=== PATIENT | female | born 1965 | race Caucasian/White ===

== ENCOUNTER 2017-04-10 00:12 | Emergency (ER) | payer OTHER ==
[2017-04-10 00:20] VITALS: BMI 22.1
[2017-04-10 00:22] VITALS: RESP 18
[2017-04-10] MEDS ORDERED: Sodium Chloride 0.9% 1,000 ML IV STA (02:08)
--- NOTE | 2017-04-10 02:10 | ED PDOC ---
HPI: Abdomen Time Seen by Provider: 04/10/17 01:00 Chief Complaint (Nursing): Abdominal Pain Chief Complaint (Provider): abdominal pain History Per: Patient History/Exam Limitations: no limitations Onset/Duration Of Symptoms: Hrs Current Symptoms Are (Timing): Still Present Location Of Pain/Discomfort: Diffuse Additional History Per: Patient Additional Complaint(s): 51 y/o female history of multiple abdominal surgeries presents with diffuse abdominal pain x 5 hours. Patient states she feels like something "popped" and fluid is moving around in her stomach. Patient notes radiation of pain up to her chest. Patient states similar to previous intestinal perforation. Denies fever, nausea/vomiting, shortness of breath, palpitations, changes in bowel movements. Patient recently moved here from [place], has not yet established healthcare providers. Past Medical History Reviewed: Historical Data, Nursing Documentation, Vital Signs Vital Signs: Last Vital Signs Temp 97.7 F 04/10/17 00:20 Pulse 118 H 04/10/17 00:20 Resp 18 04/10/17 00:20 BP 148/100 H 04/10/17 00:20 Pulse Ox 98 04/10/17 05:01 - Medical History PMH: HTN, Hypothyroidism Other PMH: endometriosis, SBO, intestinal perforation - Surgical History Other surgeries: laparscopies, jejunostomy, hysterectomy - Family History Family History: States: No Known Family Hx - Home Medications Home Medications: Ambulatory Orders Medication Instructions Recorded Docusate Sodium [Colace] 100 mg PO BID #20 capsule 04/10/17 Polyethylene Glycol 3350 [Miralax] 17 gm PO DAILY PRN #5 powd.pack 04/10/17 - Allergies Allergies/Adverse Reactions: Allergies Allergy/AdvReac Type Severity Reaction Status Date / Time butorphanol [From Stadol] Allergy ANAPHYLAXIS Verified 04/10/17 00:47 ketorolac [From Toradol] Allergy ANAPHYLAXIS Verified 04/10/17 00:47 levothyroxine sodium Allergy ANAPHYLAXIS Verified 04/10/17 00:47 [From Synthroid] metoclopramide [From Reglan] Allergy ANAPHYLAXIS Verified 04/10/17 00:47 morphine Allergy ANAPHYLAXIS Verified 04/10/17 00:47 nalbuphine [From Nubain] Allergy ANAPHYLAXIS Verified 04/10/17 00:47 ondansetron Allergy ANAPHYLAXIS Verified 04/10/17 00:47 [From Zofran (as hydrochloride)] prochlorperazine Allergy ANAPHYLAXIS Verified 04/10/17 00:47 [From Compazine] Review of Systems ROS Statement: Except As Marked, All Systems Reviewed And Found Negative Gastrointestinal: Positive for: Abdominal Pain Physical Exam - Reviewed Nursing Documentation Reviewed: Yes Vital Signs Reviewed: Yes - Physical Exam Appears: Positive for: Well, Non-toxic, No Acute Distress Head Exam: Positive for: ATRAUMATIC, NORMAL INSPECTION, NORMOCEPHALIC Skin: Positive for: Normal Color Eye Exam: Positive for: Normal appearance ENT: Positive for: Normal ENT Inspection Cardiovascular/Chest: Positive for: Regular Rate, Rhythm Respiratory: Positive for: Normal Breath Sounds Gastrointestinal/Abdominal: Positive for: Bowel Sounds, Soft, Tenderness ( diffuse), Other (midline surgical scars). Negative for: Distended, Guarding Back: Positive for: Normal Inspection Extremity: Positive for: Normal ROM Neurologic/Psych: Positive for: Alert, Oriented - Laboratory Results Result Diagrams: 04/10/17 02:20 04/10/17 02:20 Urine POC: Negative Urine dip results: Negative for: Leukocyte Esterase, Blood, Nitrate, Ketones, Glucose - ECG ECG: Positive for: Viewed By Me (reviewed by ED attending) ECG Rhythm: Positive for: Sinus Rhythm O2 Sat by Pulse Oximetry: 98 Pulse Ox Interpretation: Normal - Radiology X-Ray: Viewed By Me X-Ray Interpretation: No Acute Disease - Progress ED Course And Treament: labs, ekg, CT abd/pelvis, IV dilaudid EXAM: CT Abdomen and Pelvis With Intravenous Contrast CLINICAL HISTORY: 51 years old, female; Pain; Abdominal pain; Generalized; Prior surgery; Surgery type: Hysterectomy jejunostomy laparossopies; Additional info: Diffuse abd pain TECHNIQUE: Axial computed tomography images of the abdomen and pelvis with intravenous contrast. All CT scans at this facility use one or more dose reduction techniques, viz.: automated exposure control; ma/kV adjustment per patient size (including targeted exams where dose is matched to indication; i.e. head); or iterative reconstruction technique. Coronal and sagittal reformatted images were created and reviewed. CONTRAST: 90 mL of [id number] administered intravenously. COMPARISON: No relevant prior studies available. FINDINGS: Lower thorax: Bilateral breast implants. ABDOMEN: Liver: Hepatic cysts. Gallbladder and bile ducts: Intrahepatic and extrahepatic bile duct prominence which may be related to cholecystectomy. No calcified common bile duct stone is identified. Pancreas: Unremarkable. No mass. No ductal dilation. Spleen: Peripherally calcified cyst in the spleen. Adrenals: Unremarkable. No mass. Kidneys and ureters: Unremarkable. No solid mass. No hydronephrosis. Stomach and bowel: Moderate fecal retention in the colon consistent with constipation. Fluid distention of a few small bowel loops in the upper abdomen. A mechanical obstruction is not seen. No mucosal thickening. Appendix: The appendix is not clearly seen. PELVIS: Bladder: Unremarkable. No mass. Reproductive: Unremarkable as visualized. ABDOMEN and PELVIS: Intraperitoneal space: Unremarkable. No free air. No significant fluid collection. Bones/joints: Degenerative changes lumbar spine. Grade 1 anterolisthesis of L4 on L5 appears to be on a degenerative basis. Grade 1 anterolisthesis of L5 on S1 appears to be due to a bilateral L5 spondylolysis. No acute fracture. No dislocation. Soft tissues: Unremarkable. Vasculature: Atherosclerotic disease. No abdominal aortic aneurysm. Lymph nodes: Unremarkable. No enlarged lymph nodes. IMPRESSION: 1. Moderate fecal retention in the colon consistent with constipation. 2. Fluid distention of a few small bowel loops in the upper abdomen. A mechanical obstruction is not seen. Patient educated on findings, discharged with rx colace, miralax. Advised high fiber diet. Fluids Follow up PMD 2-3 days. Return precautions given. Disposition - Clinical Impression Clinical Impression: Constipation, Abdominal pain - Patient ED Disposition Is Patient to be Admitted: No Counseled Patient/Family Regarding: Studies Performed, Diagnosis, Need For Followup, Rx Given - Disposition Referrals: [facility] [Outside] Disposition: Routine/Home Disposition Time: 05:40 Condition: IMPROVED Prescriptions: Docusate Sodium [Colace] 100 mg PO BID #20 capsule Polyethylene Glycol 3350 [Miralax] 17 gm PO DAILY PRN #5 powd.pack PRN Reason: Constipation Instructions: Constipation (ED), High Fiber Diet (ED), Abdominal Pain (ED) Forms: [employer] (Yakut)
[2017-04-10 02:28] LABS: BASO # 0.1 K/uL (0.0-0.2); BASO % 0.8 % (0.0-2.0); EOS # 0.1 K/uL (0.0-0.7); EOS % 0.6 % (0.0-4.0); HEMOGLOBIN 13.9 g/dL (12.0-16.0); LYMPH # 2.5 K/uL (1.0-4.3); LYMPH % 26.6 % (20.0-40.0); MEAN CORPUSCULAR HEMOGLOBIN 29.7 pg (27.0-31.0); MEAN CORPUSCULAR HGB CONC 32.6 g/dL (33.0-37.0); MEAN PLATELET VOLUME 10.3 fl (7.2-11.7); MONO # 0.9 K/uL (0.0-0.8); MONO % 9.3 % (0.0-10.0); NEUT # 5.8 K/uL (1.8-7.0); NEUT % 62.7 % (50.0-75.0); NRBC % 0.1 % (0.0-0.0); RBC 4.7 Mil/uL (3.80-5.20); RED CELL DISTRIBUTION WIDTH 16.8 % (11.5-14.5); WHITE BLOOD COUNT 9.3 K/uL (4.8-10.8)
[2017-04-10 02:35] LABS: BARBITURATES, UR NEGATIVE (NEGATIVE); BENZODIAZEPINES, UR NEGATIVE (NEGATIVE); OPIATES, UR NEGATIVE (NEGATIVE); PHENCYCLIDINE, UR NEGATIVE (NEGATIVE)
[2017-04-10 02:49] LABS: ALB/GLOB RATIO 1.2 (1.0-2.1); ALBUMIN 3.9 g/dL (3.5-5.0); ALT/SGPT 37 U/L (9-52); AST/SGOT 27 U/L (14-36); BLOOD UREA NITROGEN 31 mg/dl (7-17); CALCIUM 9.2 mg/dL (8.4-10.2); GFR AFRICAN-AMERICAN > 60; GFR NON-AFRICAN AMERICAN 53; LIPASE 107 U/L (23-300)
[2017-04-10] MEDS ORDERED: Iohexol 240 (50 ml) PO STA (03:01)
[2017-04-10] MEDS ORDERED: DiphenhydrAMINE 50 mg/ml Inj IVP STA (03:54)
[2017-04-10] MEDS ORDERED: Iohexol 300 100 ML IJ ONE (04:27)
[2017-04-10] MEDS ORDERED: Sodium Chloride 0.9% 50 ML IV ONE (04:27)
[2017-04-10 05:49] VITALS: BP 122/86; PULSE 69; TEMP 98.3; O2SAT 96
--- NOTE | 2017-04-10 09:17 | CT ---
PROCEDURE: CT Abdomen and Pelvis with contrast HISTORY: diffuse abd pain. Prior surgery including hysterectomy jejunostomy and cholecystectomy. COMPARISON: No relevant prior studies available. TECHNIQUE: Contrast dose: 90 mL Omnipaque 300. Axial and reformatted coronal and sagittal CT images of the abdomen and pelvis were obtained after IV and oral contrast administration. Radiation dose: Total exam DLP = 451.73 mGy-cm. This CT exam was performed using one or more of the following dose reduction techniques: Automated exposure control, adjustment of the mA and/or kV according to patient size, and/or use of iterative reconstruction technique. FINDINGS: LOWER THORAX: No evidence of acute pathology at the lung bases. LIVER: There are 4 low-attenuation lesions seen in the liver may represent liver cysts. There are 2 adjacent low-attenuation lesion at the anterior aspect of the liver dome with the largest lesion measures approximately 1 centimeter. Mild intrahepatic biliary ductal dilatation is noted. No evidence of solid enhancing mass in the liver. GALLBLADDER AND BILE DUCTS: Patient status post cholecystectomy. Surgical clips are noted at the gallbladder fossa. Mildly dilated common bile duct measures at the proximal portion 12 millimeter and in the distal portion 8.6 millimeter. PANCREAS: The main pancreatic duct is slightly dilated. No definite evidence of enhancing mass lesion in the pancreas. SPLEEN: There is 3 centimeter calcified wall low-attenuation lesion at the spleen. ADRENALS: Unremarkable. No mass. KIDNEYS AND URETERS: Unremarkable. No hydronephrosis. No solid mass. VASCULATURE: Unremarkable. No aortic aneurysm. BOWEL: Moderately dilated small bowel loops noted in the left mid and upper abdomen. The oral contrast reached to the distal portion of the small bowel. There is mild to moderate constipation in the large bowel. No definite evidence of mechanical obstruction. Surgical clips and bowel anastomosis noted at the left mid abdomen. APPENDIX: No evidence of appendicitis. PERITONEUM: Unremarkable. No free fluid. No free air. LYMPH NODES: Unremarkable. No enlarged lymph nodes. BLADDER: Unremarkable. REPRODUCTIVE: Patient is likely status post partial hysterectomy. BONES: No acute fracture. Mild anterior spondylolisthesis of L5 relative to S1 is noted. OTHER FINDINGS: None. IMPRESSION: [id number] dilated small bowel loops in the mid and upper left abdomen. No definite evidence of high-grade mechanical obstruction. [id number] constipation. Low-attenuation small cystic lesion noted in the liver may represent benign liver cysts. Correlation with prior study would be helpful. Mild intrahepatic and extrahepatic biliary ductal dilatation. Status post cholecystectomy. 3 centimeter calcified wall cystic lesion at the medial aspect of the spleen likely benign. Preliminary report was submitted by [facility].
--- NOTE | 2017-04-10 11:34 | RAD ---
HISTORY: Chest pain. COMPARISON: No prior. FINDINGS: LUNGS: No active pulmonary disease. PLEURA: No significant pleural effusion identified, no pneumothorax apparent. CARDIOVASCULAR: Normal. OSSEOUS STRUCTURES: No significant abnormalities. VISUALIZED UPPER ABDOMEN: Normal. OTHER FINDINGS: None. IMPRESSION: No active disease.
--- NOTE | 2017-04-10 17:07 | CARD ---
APPROVED REPORT EKG Measurement Heart [id number] <Conclusion> Normal sinus rhythm Possible Left atrial enlargement Borderline ECG
== END 2017-04-10 06:05 | disposition home or self-care (01) ==
LOC: H.ER 00:12 → EDSEX 00:12 → H.ER 06:05
DX: K59.00 Constipation, unspecified (principal); R10.9 Unspecified abdominal pain; I10 Essential (primary) hypertension; E03.9 Hypothyroidism, unspecified
CPT/HCPCS: 71045; 74177; 80053; 80324; 80345; 80346; 80349; 80353; 80358; 80361; 83690; 83992; 84484; 85025; 93005; 96361; 96365; 96375; 96376; 99284; J1170; J1200; J2550; J7040; Q9966; Q9967